=== PATIENT | male | born 2000 | race Caucasian/White ===

== ENCOUNTER 2022-06-01 18:27 | Emergency (ER) | payer OTHER ==
[~2022-06-01] VITALS: Ht 182.9 cm; Wt 93.5 kg
[2022-06-01] MEDS ORDERED: KETO10TAB PO (20:46)
[2022-06-01] MEDS ORDERED: ONDA4TAB6 PO (20:46)
[2022-06-01 21:16] VITALS: BP 118/72
== END 2022-06-01 21:17 | disposition home or self-care (01) ==
LOC: M ED 18:27
DX: S06.0X0A Concussion without loss of consciousness, initial encounter (principal); V49.40XA Driver injured in collision with unspecified motor vehicles in traffic accident, initial encounter; Y92.410 Unspecified street and highway as the place of occurrence of the external cause; Z79.899 Other long term (current) drug therapy